=== PATIENT | male | born 1940 | race Caucasian/White ===

== ENCOUNTER 2016-05-10 12:05 | Outpatient (CLI) ==
[2015-03-02 17:13] VITALS: BMI 27.3
--- NOTE | 2016-05-11 08:05 | CT ---
EXAM: CT scan of the sinuses without contrast HISTORY: Dizzy and giddiness for 3-4 days TECHNIQUE: Imaging of the sinuses was performed. Axial images and coronal and sagittal reconstruct ions were provided for interpretation. FINDINGS: There is mild mucosal thickening seen along the floor the maxillary sinuses bilaterally. There is minimal mucosal thickening seen along the floor of the frontal sinus. No abnormal air-flu id levels are seen. The remainder of the paranasal sinuses and mastoid air cells are clear. No obv ious obstructing lesions are seen along the ostiomeatal complexes. The nasal turbinates are normal. There is slight deviation of the nasal septum to the left. IMPRESSION: Mild chronic sinusitis seen along the floor of the maxillary sinuses bilaterally and al evin the floor of the frontal sinus.
--- NOTE | 2016-05-11 08:05 | CT ---
EXAM: CT of the head without contrast History: Dizziness and giddiness Comparison: Head CT 03/02/2015 Technique: Multiplanar CT images through the head were obtained without the administration of IV co ntrast Findings: No air-fluid levels seen within the sinuses. No acute calvarial abnormalities. Intracranially the ventricular and cisternal spaces are normal in size, shape and configuration for a patient of this age. 8 mm vague round hyperdensity seen within the left cerebellum was not seen on the prior study. Periventricular and subcortical white matter hypodensities again noted. Impression: Round hyperdensity within the left cerebellum could represent mass or small focus of hem orrhage. Consider further evaluation with brain MRI.
== END 2016-05-10 12:06 | disposition home or self-care (01) ==
LOC: RAD 12:05
PROVIDERS: ATTEND General Practice
DX: R42 Dizziness and giddiness (principal)

== ENCOUNTER 2016-05-13 06:31 | Outpatient (CLI) ==
[2015-03-02 17:13] VITALS: BMI 27.3
--- NOTE | 2016-05-13 08:46 | MRI ---
EXAM: MRA brain without IV contrast. DATE: 13 May 2016. HISTORY: Brain disorder. Dizziness. Lung cancer. TECHNIQUE: 3-D [id number] sequence centered on the [place] was performed without IV contr ast, using 1.2 [place] magnet. 3-D MIP reconstruction images of the intracranial arteries were produc ed in addition to the axial source images. Degree of stenoses are characterized by NASCET criteria. COMPARISON: MRI brain 13 May 2016. FINDINGS: Neither vertebral artery is dominant. Vertebrobasilar system is tortuous. Basilar arter y is normal in diameter, without focal stenosis, dissection or aneurysm. Each superior cerebellar a rtery is intact. Right and left PCOM is intact. 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 Symmetric bilateral blood flow is evident within the anterior, middle, and posterior cerebral artery distributions peripherally. No intracranial aneurysm or AVM is detected. Both petrous ICAs are normal. Each cavernous ICA is norm al. IMPRESSIONS: 1. Intact ACOM and bilateral PCOM. 2. No intracranial aneurysm or AVM. 3. Codominant vertebral arteries. 4. Normal bilateral petrous and cavernous ICAs.
--- NOTE | 2016-05-13 09:03 | MRI ---
EXAM: MRI brain without IV contrast. DATE: 13 May 2016. HISTORY: Brain disorder. Dizziness. Lung cancer. TECHNIQUE: Sagittal T1W, axial T2W, axial FLAIR, axial T1W, axial DWI, and coronal T2W GRE sequence s of the brain were obtained using 1.2 [place] magnet. No IV contrast. COMPARISON: MRA brain [address] head 10 May 2016 and 02 March 2015. FINDINGS: The lateral ventricles, or tips, third ventricle, Sylvian fissures and many cerebral sulc i are mildly prominent due to involutional change. No midline shift, mass effect or abnormal extra- axial fluid collection is apparent. No acute infarct is identified. Minimal T2W/FLAIR hyperintensi ty is observed in the white matter abutting each lateral ventricle. A T2W/T1W isointense, FLAIR iso intense with minimal adjacent IR bright signal, and T W GRE isointense focus (6.1 x 7 x 4 mm ( is ob served within the left cerebellum corresponding to high density focus on CT scan. The marcsu - white matter differentiation is normal. The 7th/8th cranial nerve complexes, cerebellopontine angles, bra instem, and visible cervical spinal cord are normal. There is no cerebellar tonsillar ectopia. The pituitary gland is normal in size and signal. Corpus callosum is normal in size and configuration. Flow voids are present in the major intracranial arteries and in the dural venous sinuses. Tumor basilar system is tortuous. No aneurysm, AVM or dural venous sinus thrombosis is apparent. Change in the lens of each eye suggest prior cataract surgery. No other orbit abnormality is identified. Small number right and moderate number left mastoid air cells have reticular pattern T2W bright, T1W intermediate signal. Remaining mastoid air cells are unremarkable. There is mild mucosal thickeni ng in both maxillary sinuses. Minor mucosal thickening is seen within the frontal sinuses and scatt ered ethmoid air cells. No neck mass or lymphadenopathy is detected. No calvarial neoplasm or acut e fracture is evident. IMPRESSIONS: 1. Left cerebellum subcentimeter lesion corresponding to the high density on CT scan. The signal i ntensities are not typical for hemorrhage or calcification. DDX: Primary or metastatic neoplasm sh ould be considered, especially in a patient who indicates lung cancer. Contrast-enhanced MRI may be helpful in further evaluation. 2. No acute infarct or hydrocephalus. 3. Minor supratentorial small vessel disease. 4. Mild cerebral and minor cerebellar atrophy. 5. Bilateral mastoid air cells mild mucosal disease. 6. Frontal, ethmoid, maxillary sinus mucosal disease. Note: Report called to Dr. Olsen's nurse (Di) at 0854 hrs, 13 May 2016.
== END 2016-05-13 06:32 | disposition home or self-care (01) ==
LOC: RAD 06:31
PROVIDERS: ATTEND General Practice
DX: G93.9 Disorder of brain, unspecified (principal); R58 Hemorrhage, not elsewhere classified

== ENCOUNTER 2016-05-25 08:54 | Outpatient (CLI) ==
[2015-03-02 17:13] VITALS: BMI 27.3
--- NOTE | 2016-05-25 10:43 | MRI ---
EXAM: MRI brain with IV contrast. DATE: 05/25/2016. HISTORY: Left cerebellum lesion. TECHNIQUE: Sagittal , axial, and coronal T1W postcontrast sequences of the brain and axial T1W prec ontrast sequence were obtained using 1.2 [place] magnet. CONTRAST: Omniscan - 19 ml IV. COMPARISON: MRI brain 13 May 2016. FINDINGS: The lateral ventricles, temporal tips, third ventricle, Sylvian fissures, and many cerebr al sulci are somewhat prominent due to involutional change. No midline shift, mass effect or abnorm al extra-axial fluid collection is apparent. No acute infarct or hemorrhage is identified. No abno rmal contrast enhancement is identified in the meninges or dura. A T1W precontrast isointense, slig htly heterogeneously enhancing, 9 x 9.5 x 7 mm focus in the left cerebellum corresponds with lesion identified on May 2016 MRI. No other enhancing neoplasm is identified. The marcus - white m atter differentiation is normal. No migration or diverticulation abnormality is identified. The am ygdala, hippocampus, and parahippocampal gyri are symmetric in size and signal bilaterally. The 7th /8th cranial nerve complexes, cerebellopontine angles, brainstem, and visible cervical spinal cord a re normal. There is no cerebellar tonsillar ectopia. The pituitary gland is normal in size and has normal signal. Corpus callosum is normal in size and configuration. Flow voids are present in the major intracranial arteries and in the dural venous sinuses. No aneurysm, AVM or dural venous sinu s thrombosis is apparent. Change in the lens of each eye suggests prior cataract surgery. No other orbit abnormality is identified. A single right anterior superior mastoid air cell has T1W interme diate signal without definitive enhancement. Left mastoid air cells are unremarkable. There is min imal mucosal thickening within scattered ethmoid air cells, both frontal sinuses, and both maxillary sinuses. No neck mass or lymphadenopathy is detected. No calvarial neoplasm or acute fracture is evident. IMPRESSIONS: 1. Left cerebellum enhancing lesion. DDX: Primary neoplasm or metastatic disease are the most lik michele considerations. This is not a typical appearance for cavernous angioma, AVM or aneurysm. Hamar kelley or other benign neoplasm are not excluded. 2. No acute infarct, hemorrhage, or hydrocephalus. 3. Mild cerebral and minor cerebellar atrophy. 4. Minimal right mastoid air cell disease. 5. Persistent, minor sinus mucosal disease.
== END 2016-05-25 08:55 | disposition home or self-care (01) ==
LOC: RAD 08:54
PROVIDERS: ATTEND Internal Medicine Hematology & Oncology
DX: G93.9 Disorder of brain, unspecified (principal)

== ENCOUNTER 2016-06-08 07:14 | Outpatient (CLI) ==
[2015-03-02 17:13] VITALS: BMI 27.3
--- NOTE | 2016-06-08 09:04 | CT ---
EXAM: CT chest with contrast. CT abdomen with contrast. CT pelvis with contrast. HISTORY: Lung cancer. COMPARISON: 03/31/2016, 02/17/2012. TECHNIQUE: Multiple axial images of the chest, abdomen pelvis were obtained following intravenous a dministration of 75 mL of Omnipaque 350, low osmolar. Images were reformatted in the sagittal and c oronal plane. FINDINGS: Multiple mediastinal lymph nodes are present with the largest measuring 1.1 cm in the AP window on axial images 24 and 25, stable since the most recent study, new since 2011. Right hilar l ymph nodes measure up to 0.9 cm short axis on axial image 29 which is stable since 2011. Left hilar lymph nodes measure up to 1.1 cm short axis on axial image 30, stable since the most recent study, new since 2011. Heart size is normal. No pericardial effusion identified. Atherosclerotic calcifications are prese nt. Ascending thoracic aorta measures up to 4.7 cm transverse diameter. There is no evidence for ao rtic dissection. Spiculated mass within the left lower lobe measures approximately 4.9 x 4.4 x 3.4 cm on sagittal fabian ge 39 and coronal images 71 and 72 which is mildly increased in size since the most recent study. S atellite nodule measuring 0.4 cm noted on axial image 37 inferior to the spiculated mass is stable s glenn the most recent study, although new since 2011. A 0.7 cm left upper lobe nodule on axial image 15 is stable since the most recent study, although new since 2011. No pleural effusion or pneumotho rax detected. A 1.7 x 1.5 low density lateral left hepatic lobe lesion noted on axial image 55 is stable since 201 2, as is a 0.8 x 0.6 cm inferior right hepatic lobe lesion noted on axial image 67. The gallbladder , pancreas, spleen, and adrenal glands are unremarkable. There is symmetric renal enhancement witho ut hydronephrosis. There is no evidence for bowel obstruction or acute inflammation. Diverticula are present in the co juanjo. Appendix not seen. Urinary bladder is unremarkable. Prostate gland is enlarged measuring at least 6 x 5 x 5.5 cm. No free fluid or free air seen in the abdomen or pelvis. Atherosclerotic cathy cifications present. No lymphadenopathy seen within the abdomen or pelvis. Degenerative changes present throughout the spine and hips. No osteolytic or osteoblastic lesion id entified. 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 IMPRESSION: 1. Mild increase in size of spiculated left lower lobe mass with small satellite nodule, consistent with lung cancer. Additional left upper lobe nodule and mediastinal and left hilar lymphadenopathy, likely due to the same process. 2. No evidence for metastatic disease in the abdomen or pelvis.
== END 2016-06-08 07:15 | disposition home or self-care (01) ==
LOC: RAD 07:14
PROVIDERS: ATTEND Internal Medicine Hematology & Oncology
DX: C34.90 Malignant neoplasm of unspecified part of unspecified bronchus or lung (principal)

== ENCOUNTER 2016-07-13 04:07 | Emergency (ER) ==
[2016-07-13 04:28] VITALS: BP 119/80; TEMP 98.2; BMI 25.9
[2016-07-13] MEDS ORDERED: SODIUM CHLORIDE 1,000 ML IV STA ×2 (04:43→06:40)
[2016-07-13 05:00] LABS: BASOPHILS % (AUTO) 0.4 % (0.0-3.0); EOSINOPHILS # (AUTO) 0.2 K/ul (0.0-0.7); HEMATOCRIT 45.5 % (42.0-52.0); IMMATURE GRANULOCYTE % (AUTO) 0.5 % (0.0-5.0); LYMPHOCYTES # (AUTO) 0.9 K/uL (0.60-3.4); LYMPHOCYTES % (AUTO) 11.7 (10.0-50.0); MEAN CORPUSCULAR HEMOGLOBIN 30.4 pg (27.0-31.0); MEAN CORPUSCULAR HGB CONC 35.2 (31.8-35.4); MEAN CORPUSCULAR VOLUME 86.5 fl (80.0-94.0); MONOCYTES # (AUTO) 1.4 K/uL (0.4-2.0); MONOCYTES % (AUTO) 17.6 (0-10); NEUTROPHILS # (AUTO) 5.4 K/ul (2.0-6.9); NEUTROPHILS % (AUTO) 67.8; PLATELET COUNT 205 10^3/uL (140-440); RED BLOOD COUNT 5.26 10^6/ul (4.70-6.10); WHITE BLOOD COUNT 7.97 K/ul (4.2-10.2)
[2016-07-13 05:32] LABS: ALBUMIN 3.4 g/dL (3.4-5.0); ALBUMIN/GLOBULIN RATIO 0.97; ANION GAP 16.4; BILIRUBIN,TOTAL 1.63 mg/dL (0.00-1.20); BUN/CREATININE RATIO 18.04; CALCIUM 8.9 mg/dL (8.2-10.2); CREATININE 1.33 mg/dL (0.60-1.10); ERYTHROCYTE SEDIMENTATION RATE 26 mm/hr (0-15); ESR INTERNAL QC INTERNAL QC VALID; POTASSIUM 3.4 mmol/L (3.5-5.1); TOTAL PROTEIN 6.9 g/dL (5.8-8.1)
--- NOTE | 2016-07-13 05:42 | CT ---
EXAM: CT abdomen pelvis without intravenous contrast 07/13/2016. Sagittal and coronal reformatted images obtained HISTORY: Diarrhea. Lung cancer COMPARISON: 03/08/2017 FINDINGS: Partially visualized linear and mass-like opacity within the left lower lobe. The previously described low density lesion within the left lobe of the liver on image 26 is stable. This may represent cyst or hemangioma. The liver and gallbladder show no acute abnormality. The adrenal glands and kidneys show no acute process. There is no urinary obstruction. The spleen and pancreas show no acute abnormality. No bowel obstruction. There are multiple air fluid levels within small bowel and colon. Correlate for enteritis/diarrhea. IMPRESSION: 1. Partially visualized linear and mass-like density at the left lower lobe. Malignancy has been p reviously described at this site. 2. Stable benign appearing low density lesion within the left lobe of the liver which may represent cyst or meningioma. 3. No urinary or bowel obstruction. Multiple air fluid levels of small bowel and colon. Correlate for enteritis/diarrhea. 4. No acute superimposed inflammatory process identified within the abdomen or pelvis within the li mitation of a noncontrast enhanced examination.
[2016-07-13 06:12] LABS: BILIRUBIN,URINE 1+ (NEGATIVE); KETONES,URINE Negative (NEGATIVE); LEUKOCYTE ESTERASE ,URINE Negative (NEGATIVE); NITRITE,URINE Negative (NEGATIVE); PH,URINE 5.5 (5-9); PROTEIN,URINE 1+ (NEGATIVE); URINE, BLOOD Negative (NEGATIVE)
[2016-07-13 06:17] LABS: ADD URINE MICROSCOPIC YES; BACTERIA,URINE TRACE (NOT PRESENT)
--- NOTE | 2016-07-13 06:36 | ED.PDOC ---
[id number] 4d im having 20 stools per day while using imodium... Time Seen by Physician: 04:10 Mode of Arrival: Walk-In Information Source: Patient, Family Exam Limitations: No limitations [facility] T[facility] Documentation Reviewed and Agree: Yes GI Complaint Exam - Vomiting/Diarrhea Complaint/Exam Onset/Duration: one month Symptoms Are: Still present Episodes of Vomiting over last 24 Hours: 0 Episodes of Diarrhea Over Last 24 Hours: 20 Initial Severity: Mild Current Severity: Severe Character of Diarrhea: Reports: Watery Aggravating: Reports: Food Alleviating: Reports: None Associated Signs and Symptoms: Reports: Abdominal pain, Cramping. Denies: Light -headedness, Melena, Hematemesis, Fever Non-GI Risk Factors: Reports: None Abdominal Findings: Present: None Kussmaul Respirations Present: No Differential Diagnoses: Dehydration, Bacterial Gastroenteritis Review of Systems - Review Of Systems Constitutional: Reports: No symptoms Eyes: Reports: No symptoms Ears, Nose, Mouth, Throat: Reports: No symptoms Respiratory: Reports: No symptoms Cardiac: Reports: No symptoms GI: Reports: Diarrhea, Nausea, Poor appetite, Poor fluid intake : Reports: No symptoms Musculoskeletal: Reports: No symptoms Skin: Reports: No symptoms Neurological: Reports: No symptoms Endocrine: Reports: No symptoms Hematologic/Lymphatic: Reports: No symptoms All Other Systems: Reviewed and Negative Past Medical History - Past Medical History Previously Healthy: Yes Endocrine: Reports: Dyslipidemia Cardiovascular: Reports: None Respiratory: Reports: None Hematological: Reports: None Gastrointestinal: Reports: None Genitourinary: Reports: None Neuro/Psych: Reports: None Musculoskeletal: Reports: None Cancer: Reports: None - Surgical History General Surgical History: Reports: None - Family History Family History: Reports: None - Social History Smoking Status: Never smoker Hx Substance Use: No Alcohol Screening: None Lives: With family - Immunizations Tetanus Shot up to Date: No Physical Exam - Physical Exam Appearance: Well-appearing, No pain distress, Well-nourished Pain Distress: Moderate Eyes: AMOL, EOMI, Conjunctiva clear ENT: Ears normal, Nose normal, Oropharynx normal Neck: Supple Respiratory: Airway patent, Breath sounds clear, Breath sounds equal, Respirations nonlabored Cardiovascular: RRR, Pulses normal, No rub, No murmur GI/: Soft, Nontender, No masses, Bowel sounds normal, No Organomegaly Musculoskeletal: Normal strength, ROM intact, No edema, No calf tenderness Skin: Warm, Dry, Normal color Neurological: Sensation intact, Motor intact, Reflexes intact, Cranial nerves intact, Alert, Oriented Psychiatric: Affect appropriate, Mood appropriate Interpretation - Radiology Interpretation Radiology Interpretation By: Radiologist Radiology Results: Negative Exam Interpreted: CT Scan - EKG Interpretation Time of EKG #1: 05:00 Rate: Normal Rhythm: Sinus [place]: Right ST Segment: Normal Re-Evaluation - Re-Evaluation Time of Re-Evaluation: 06:51 Status: Improved Vital Signs Stable: Yes Pain Level: 0 Appearance: NAD Lungs: Clear Skin: Warm and Dry Neuro: Alert and Oriented X3 CV: RRR Physician Notification - Case Discussed Physician Notified: dr doss(covering for dr gillespie)--advised holding afatinib Time of Notification: 06:52 Critical Care Note - Critical Care Note Total Time (mins): 0 Course - Course Hematology/Chemistry: 07/13/16 04:55 07/13/16 04:55 Orders, Labs, Meds: Lab Review 07/13/16 07/13/16 04:55 06:05 WBC 7.97 RBC 5.26 Hgb 16.0 Hct 45.5 MCV 86.5 MCH 30.4 MCHC 35.2 RDW Coeff of Lela 12.7 Plt Count 205 Immature Gran % (Auto) 0.5 Neut % (Auto) 67.8 Lymph % (Auto) 11.7 [place] % (Auto) 17.6 H Eos % (Auto) 2.0 Baso % (Auto) 0.4 Immature Gran # (Auto) 0.0 Neut # 5.4 Lymph # 0.9 [place] # 1.4 Eos # 0.2 Baso # 0.0 ESR 26 H Sodium 135 L Potassium 3.4 L Chloride 104 Carbon Dioxide 18 L Anion Gap 16.4 BUN 24 H Creatinine 1.33 H Estimated GFR (MDRD) 52.00 BUN/Creatinine Ratio 18.04 Glucose 120 H Calcium 8.9 Total Bilirubin 1.63 H AST 12 L ALT 17 Alkaline Phosphatase 64 Total Protein 6.9 Albumin 3.4 Globulin 3.5 Albumin/Globulin Ratio 0.97 Amylase 37 Lipase 14 Urine Color Yellow Urine Clarity Clear Urine pH 5.5 Ur Specific [place] 1.025 Urine Protein 1+ Urine Glucose (UA) Negative Urine Ketones Negative Urine Blood Negative Urine Nitrite Negative Urine Bilirubin 1+ Urine Urobilinogen 0.2 Ur Leukocyte Esterase Negative Urine Microscopic WBC 0-2 Ur Squamous Epith Cells 0-2 Urine Bacteria Trace Hyaline Casts 2-5 Urine Mucus 1+ Orders Category Date Time Status EKG-(ED ONLY) Stat CARDIO 07/13/16 04:43 Completed ED IV/MEDIPORT/POWERPORT .ONCE EMERGENCY 07/13/16 04:43 Active AMYLASE Stat LAB 07/13/16 04:55 Completed CBC W/ AUTO DIFF Stat LAB 07/13/16 04:55 Completed COMPREHENSIVE METABOLIC PANEL Stat LAB 07/13/16 04:55 Completed ESR Stat LAB 07/13/16 04:55 Completed LIPASE Stat LAB 07/13/16 04:55 Completed STOOL CULTURE Stat LAB 07/13/16 06:05 Results URINALYSIS C & S IF INDICATED Stat LAB 07/13/16 06:05 Completed 0.9 % Sodium Chloride [Saline Flush] MEDS 07/13/16 04:43 Discontinued 1 syr IVF PRN PRN Sodium Chloride 0.9% [Sodium Chloride] 1,000 ml MEDS 07/13/16 04:43 Discontinued IV BOLUS Sodium Chloride 0.9% [Sodium Chloride] 1,000 ml MEDS 07/13/16 06:[address] ABDOMEN/PELVIS WO CONTRAST Stat RADS 07/13/16 04:43 Completed Medications Discontinued Medications Generic Name Dose Route Start Last Admin Trade Name Freq PRN Reason Stop Dose Admin Sodium Chloride 1,000 mls @ 1,000 mls/hr 07/13/16 04:43 07/13/16 04:58 Sodium Chloride IV 07/13/16 05:42 1,000 mls/hr BOLUS STA Administration Sodium Chloride 1,000 mls @ 1,000 mls/hr 07/13/16 06:40 07/13/16 06:40 Sodium Chloride IV 07/13/16 07:39 1,000 mls/hr BOLUS STA Administration Sodium Chloride 1 syr 07/13/16 04:43 07/13/16 04:58 Saline Flush IVF 1 syr PRN PRN Administration To flush IV Vital Signs: Temp Pulse Resp BP Pulse Ox 07/13/16 04:08 98.2 F 107 H 24 119/80 95 Departure - Departure Time of Disposition: 06:52 Disposition: HOME SELF-CARE Discharge Problem: Diarrhea Instructions: Acute Diarrhea (ED) Condition: Good Pt referred to PMD for follow-up: Yes Additional Instructions: hold afatinib for now until you speak to dr gillespie later today--return prn Allergies/Adverse Reactions: Allergies No Known Allergies Allergy (Verified 07/13/16 04:28) Home Medications: Ambulatory Orders Afatinib Dimaleate [Gilotrif] 40 mg PO DAILY 07/13/16 Loperamide HCl [Imodium] 2 mg PO LOOSE STOOL PRN PRN 07/13/16 Disposition Discussed With: Patient, Family
== END 2016-07-13 07:56 | disposition home or self-care (01) ==
LOC: ED 04:07
DX: R19.7 Diarrhea, unspecified (principal); R10.9 Unspecified abdominal pain
CPT/HCPCS: 36415; 80053; 81001; 82150; 83690; 85025; 85651; 87015; 87045; 87899; 93005; 93010; 96360; 96361; 99283

== ENCOUNTER 2016-09-24 10:16 | Outpatient (CLI) | payer OTHER ==
[2016-09-24 12:56] LABS: BASOPHILS % (AUTO) 0.5 % (0.0-3.0); EOSINOPHILS # (AUTO) 0.2 K/ul (0.0-0.7); EOSINOPHILS % (AUTO) 2.8 % (0.0-7.0); HEMATOCRIT 42.2 % (42.0-52.0); IMMATURE GRANULOCYTE % (AUTO) 0.2 % (0.0-5.0); LYMPHOCYTES # (AUTO) 1.1 K/uL (0.60-3.4); MEAN CORPUSCULAR HGB CONC 33.2 (31.8-35.4); MEAN CORPUSCULAR VOLUME 93.4 fl (80.0-94.0); MONOCYTES # (AUTO) 0.7 K/uL (0.4-2.0); MONOCYTES % (AUTO) 12.2 (0-10); NEUTROPHILS # (AUTO) 3.7 K/ul (2.0-6.9); NEUTROPHILS % (AUTO) 65.3; PLATELET COUNT 214 10^3/uL (140-440); RED BLOOD COUNT 4.52 10^6/ul (4.70-6.10); WHITE BLOOD COUNT 5.73 K/ul (4.2-10.2)
[2016-09-24 13:07] LABS: BILIRUBIN,URINE Negative (NEGATIVE); KETONES,URINE Negative (NEGATIVE); LEUKOCYTE ESTERASE ,URINE Negative (NEGATIVE); NITRITE,URINE Negative (NEGATIVE); PH,URINE 5.5 (5-9); PROTEIN,URINE Negative (NEGATIVE); URINE, BLOOD Negative (NEGATIVE)
[2016-09-24 13:19] LABS: ALBUMIN 4.1 g/dL (3.4-5.0); ALBUMIN/GLOBULIN RATIO 1.37; ANION GAP 14.2; BILIRUBIN,TOTAL 1.67 mg/dL (0.00-1.20); BUN/CREATININE RATIO 16.27; CALCIUM 9.4 mg/dL (8.2-10.2); CHOL/HDL RATIO 3.6 (4.5-6.4); CREATININE 0.86 mg/dL (0.60-1.10); POTASSIUM 4.2 mmol/L (3.5-5.1); TOTAL PROTEIN 7.1 g/dL (5.8-8.1)
[2016-09-24 13:25] LABS: ADD URINE MICROSCOPIC NO
== END 2016-09-24 10:17 | disposition home or self-care (01) ==
LOC: LAB 10:16
PROVIDERS: ATTEND General Practice
DX: R73.09 Other abnormal glucose (principal); D64.9 Anemia, unspecified; E78.5 Hyperlipidemia, unspecified; Z79.899 Other long term (current) drug therapy
CPT/HCPCS: 36415; 80053; 80061; 81001; 83036; 85025

== ENCOUNTER 2017-01-28 13:00 | Outpatient (CLI) ==
[2017-01-28 13:20] LABS: BASOPHILS % (AUTO) 0.6 % (0.0-3.0); EOSINOPHILS # (AUTO) 0.1 K/ul (0.0-0.7); EOSINOPHILS % (AUTO) 2.2 % (0.0-7.0); HEMATOCRIT 42.1 % (42.0-52.0); HEMOGLOBIN 14.1 g/dl (14.0-18.0); IMMATURE GRANULOCYTE % (AUTO) 0.4 % (0.0-5.0); LYMPHOCYTES % (AUTO) 19.1 (10.0-50.0); MEAN CORPUSCULAR HEMOGLOBIN 31.2 pg (27.0-31.0); MEAN CORPUSCULAR HGB CONC 33.5 (31.8-35.4); MEAN CORPUSCULAR VOLUME 93.1 fl (80.0-94.0); MONOCYTES # (AUTO) 0.5 K/uL (0.4-2.0); MONOCYTES % (AUTO) 9.3 (0-10); NEUTROPHILS # (AUTO) 3.7 K/ul (2.0-6.9); NEUTROPHILS % (AUTO) 68.4; PLATELET COUNT 221 10^3/uL (140-440); RED BLOOD COUNT 4.52 10^6/ul (4.70-6.10); WHITE BLOOD COUNT 5.39 K/ul (4.2-10.2)
[2017-01-28 13:31] LABS: BILIRUBIN,URINE Negative (NEGATIVE); KETONES,URINE Negative (NEGATIVE); LEUKOCYTE ESTERASE ,URINE Negative (NEGATIVE); NITRITE,URINE Negative (NEGATIVE); PROTEIN,URINE Negative (NEGATIVE); URINE, BLOOD Negative (NEGATIVE)
[2017-01-28 13:32] LABS: ADD URINE MICROSCOPIC NO
[2017-01-28 13:38] LABS: ALBUMIN 3.8 g/dL (3.4-5.0); ALBUMIN/GLOBULIN RATIO 1.15; ANION GAP 13.8; BILIRUBIN,TOTAL 1.41 mg/dL (0.00-1.20); BUN/CREATININE RATIO 20.93; CALCIUM 9.3 mg/dL (8.2-10.2); CHOL/HDL RATIO 3.5 (4.5-6.4); CREATININE 0.86 mg/dL (0.60-1.10); POTASSIUM 3.8 mmol/L (3.5-5.1); TOTAL PROTEIN 7.1 g/dL (5.8-8.1)
== END 2017-01-28 13:01 | disposition home or self-care (01) ==
LOC: LAB 13:00
PROVIDERS: ATTEND General Practice
DX: C80.1 Malignant (primary) neoplasm, unspecified (principal); E78.5 Hyperlipidemia, unspecified; I71.4 Abdominal aortic aneurysm, without rupture; R73.03 Prediabetes; Z79.899 Other long term (current) drug therapy
CPT/HCPCS: 36415; 80053; 80061; 81001; 83036; 85025

== ENCOUNTER 2017-07-11 13:38 | Outpatient (CLI) | END 2017-07-11 13:39 | disposition home or self-care (01) | LOC: FCC-LAB 13:38 | PROVIDERS: ATTEND General Practice | DX: E78.5 Hyperlipidemia, unspecified (principal); C34.90 Malignant neoplasm of unspecified part of unspecified bronchus or lung; C80.1 Malignant (primary) neoplasm, unspecified; Z79.899 Other long term (current) drug therapy; Z12.5 Encounter for screening for malignant neoplasm of prostate | CPT/HCPCS: 36415; 80053; 80061; 81001; 85025 ==

== ENCOUNTER 2017-08-29 15:17 | Outpatient (CLI) ==
--- NOTE | 2017-08-29 15:45 | DI ---
EXAM: Two views of the chest. History: Cough. Comparison: Chest radiograph 03/02/2015 Findings: Heart size is upper limits of normal. Question nodular infiltrate on the lateral view. No appreciable pleural fluid and no pneumothorax. No acute osseous abnormalities. Impression: Question nodular lung infiltrate on the lateral view. Recommend further evaluation with chest CT.
== END 2017-08-29 15:18 | disposition home or self-care (01) ==
LOC: RAD 15:17
PROVIDERS: ATTEND General Practice
DX: R06.02 Shortness of breath (principal); R05 Cough
CPT/HCPCS: 36415; 80053; 83880

== ENCOUNTER 2017-09-09 19:33 | Emergency (ER) ==
[2017-09-09 19:43] VITALS: BP 117/75; TEMP 99.3; BMI 25.0
[2017-09-09] MEDS ORDERED: XOPENEX 1.25 MG NEB STA (19:50)
[2017-09-09] MEDS ORDERED: DUONEB NEB STA (19:50)
[2017-09-09] MEDS ORDERED: SOLU-MEDROL 125 MG IVP STA (19:50)
--- NOTE | 2017-09-09 20:23 | ED.PDOC ---
General ED Provider: Dr. JOLLY LILLY-ER Chief Complaint: Shortness of Air Stated Complaint: hes had increasing sob over the past 4 days--hx of stage 4 lung ca Time Seen by Physician: 19:40 Mode of Arrival: Walk-In Information Source: Patient Exam Limitations: No limitations [facility] Nursing and Triage Documentation Reviewed and Agree: Yes Reviewed sepsis parameters & appropriate labs ordered?: Yes System Inflammatory Response Syndrome: Not Applicable Sepsis Protocol: For patient's 13 years and over: Temp is 96.8 and below OR 101 and greater Pulse >90 BPM Resp >20/minute Acutely Altered Mental Status Are patient's symptoms suggestive of a new infection, such as: -Pneumonia -Skin, Soft Tissue -Endocarditis -UTI -Bone, Joint Infection -Implantable Device -Acute Abdominal Infection -Wound Infection -Meningitis -Blood Stream Catheter Infection -Unknown Respiratory Complaint Exam - Shortness of Air Complaint/Exam Onset/Duration: 3-4 days Symptoms Are: Still present Timing: Intermittent Initial Severity: Mild Current Severity: Moderate Character: Reports: Dyspnea on exertion Aggravating: Reports: None Alleviating: Reports: None Associated Signs and Symptoms: Reports: Cough, Labored breathing. Denies: Wheezing, Chest pain with cough, Chest pain, Fever, Diaphoresis, Nasal congestion, Dizziness, Calf pain, Calf swelling, Edema, Rapid breathing History of Healthcare-Acquired Pneumonia: No Tuberculosis Risk Factors: Reports: None Home Oxygen Use: No Recent Stress Test: No Recent Echo/LV Function: No Respiratory Distress: None Stridor Present: No Tracheal Deviation: No Subcutaneous Emphysema: No Accessory Muscle Use: No Retractions: Not Present Diminished Breath Sounds: Yes Prolonged Expiratory Phase: No Unable to Speak Full Sentences: No Fatigue: No Leg Swelling: No Dolores's Sign Present: No Grunting Respirations: No Kussmaul Respirations: No Quality Indicator For Non-Traumatic Chest Pain/Syncope: EKG Performed Review of Systems - Review Of Systems Constitutional: Reports: No symptoms Eyes: Reports: No symptoms Ears, Nose, Mouth, Throat: Reports: No symptoms Respiratory: Reports: Short of air Cardiac: Reports: No symptoms GI: Reports: No symptoms : Reports: No symptoms Musculoskeletal: Reports: No symptoms Skin: Reports: No symptoms Neurological: Reports: No symptoms Endocrine: Reports: No symptoms Hematologic/Lymphatic: Reports: No symptoms All Other Systems: Reviewed and Negative Past Medical History - Past Medical History Previously Healthy: Yes Endocrine: Reports: Dyslipidemia Cardiovascular: Reports: None Respiratory: Reports: None Hematological: Reports: None Gastrointestinal: Reports: None Genitourinary: Reports: None Neuro/Psych: Reports: None Musculoskeletal: Reports: None Cancer: Reports: Lung - Surgical History General Surgical History: Reports: None - Family History Family History: Reports: None - Social History Smoking Status: Never smoker Hx Substance Use: No Alcohol Screening: None Physical Exam - Physical Exam Appearance: Well-appearing Eyes: AMOL, EOMI, Conjunctiva clear ENT: Ears normal, Nose normal, Oropharynx normal Neck: Supple Respiratory: Breath sounds diminished Cardiovascular: RRR, Pulses normal, No rub, No murmur GI/: Soft, Nontender, No masses, Bowel sounds normal, No Organomegaly Musculoskeletal: Normal strength, ROM intact, No edema, No calf tenderness Skin: Warm Neurological: Sensation intact Psychiatric: Affect appropriate Interpretation - Radiology Interpretation Radiology Interpretation By: Radiologist Radiology Results: Positive Exam Interpreted: CXR Physician Notification - Case Discussed Physician Notified: dr coreas--notified Time of Notification: 21:42 Physician Notified: ry salas--[facility] Time of Notification: 21:43 Critical Care Note - Critical Care Note Total Time (mins): 45 Course - Course Hematology/Chemistry: 09/09/17 20:04 09/09/17 20:04 Orders, Labs, Meds: Lab Review 09/09/17 09/09/17 09/09/17 19:49 20:04 20:04 WBC 3.84 L RBC 4.23 L Hgb 13.0 L Hct 38.3 L MCV 90.5 MCH 30.7 MCHC 33.9 RDW Coeff of Lela 13.6 Plt Count 140 Immature Gran % (Auto) 0.5 Neut % (Auto) 70.5 Lymph % (Auto) 12.8 Dooly % (Auto) 13.3 H Eos % (Auto) 2.9 Baso % (Auto) 0.0 Immature Gran # (Auto) 0.0 Neut # (Auto) 2.7 Lymph # (Auto) 0.5 L Dooly # (Auto) 0.5 Eos # (Auto) 0.1 Baso # (Auto) 0.0 D-Dimer (Manual) Puncture Site Lb O2 Saturation 95.0 ABG pH 7.463 H ABG pCO2 31.4 L ABG pO2 71.0 L ABG HCO3 22.5 ABG Total CO2 23 ABG Base Excess -1 Keanu Test + FiO2 % 21.0 Sodium 140 Potassium 3.8 Chloride 106 Carbon Dioxide 20 L Anion Gap 17.8 BUN 14 Creatinine 0.89 Estimated GFR (MDRD) 83.00 BUN/Creatinine Ratio 15.73 Glucose 106 Calcium 8.7 Total Bilirubin 1.0 AST 20 ALT 20 Alkaline Phosphatase 59 B-Natriuretic Peptide Total Protein 6.6 Albumin 3.4 Globulin 3.2 Albumin/Globulin Ratio 1.06 09/09/17 09/09/17 20:04 20:04 WBC RBC Hgb Hct MCV MCH MCHC RDW Coeff of Lela Plt Count Immature Gran % (Auto) Neut % (Auto) Lymph % (Auto) Dooly % (Auto) Eos % (Auto) Baso % (Auto) Immature Gran # (Auto) Neut # (Auto) Lymph # (Auto) Dooly # (Auto) Eos # (Auto) Baso # (Auto) D-Dimer (Manual) 8137.98 Puncture Site O2 Saturation ABG pH ABG pCO2 ABG pO2 ABG HCO3 ABG Total CO2 ABG Base Excess Keanu Test FiO2 % Sodium Potassium Chloride Carbon Dioxide Anion Gap BUN Creatinine Estimated GFR (MDRD) BUN/Creatinine Ratio Glucose Calcium Total Bilirubin AST ALT Alkaline Phosphatase B-Natriuretic Peptide 64 Total Protein Albumin Globulin Albumin/Globulin Ratio Orders Category Date Time Status ABG DRAW REQUEST Stat CARDIO 09/09/17 19:49 Completed EKG-(ED ONLY) Stat CARDIO 09/09/17 19:49 Completed NEBULIZER TREATMENT Stat CARDIO 09/09/17 19:50 Completed NPO REMINDER: IMAGING ONCE CARE 09/09/17 19:51 Completed TRANSFER TO OUTSIDE FACILITY .TO [facility] 09/09/17 21:45 Active [facility] ([place], [place]) WRITE TRANSFER/SBAR NOTE ONCE CARE 09/09/17 21:45 Active DISCHARGE ASSESSMENT ONCE DISCHARGE 09/09/17 21:45 Active WRITE DISCHARGE NOTE ONCE DISCHARGE 09/09/17 21:45 Active IV [ED IV/MEDIPORT/POWERPORT] .ONCE EMERGENCY 09/09/17 19:49 Active ABG Stat LAB 09/09/17 19:49 Completed BLOOD CULTURE (ED ONLY) Stat LAB 09/09/17 20:04 Received BNP [B-TYPE NATRIURETIC PEPTIDE] Stat LAB 09/09/17 20:04 Completed CBC W/ AUTO DIFF Stat LAB 09/09/17 20:04 Completed COMPREHENSIVE METABOLIC PANEL Stat LAB 09/09/17 20:04 Completed D-DIMER Stat LAB 09/09/17 20:04 Completed 0.9 % Sodium Chloride [Saline Flush] MEDS 09/09/17 19:49 Ordered 1 syr IVF PRN PRN Ipratropium/Albuterol Neb [Duoneb] MEDS 09/09/17 19:50 Discontinued 1 vial NEB ONCE STA Levalbuterol HCl [Xopenex 1.25 mg] MEDS 09/09/17 19:50 Discontinued 1 vial NEB ONCE STA Methylprednisolone Sod Succ/Pf [Solu-Medrol 125 mg] MEDS 09/09/17 19:50 Discontinued 125 mg IVP ONCE STA CXR [CHEST, 1V AP ONLY] Stat RADS 09/09/17 20:11 Completed Medications Generic Name Dose Route Start Last Admin Trade Name Freq PRN Reason Stop Dose Admin Sodium Chloride 1 syr 09/09/17 19:49 09/09/17 20:14 Saline Flush IVF 1 syr PRN PRN Administration To flush IV Discontinued Medications Generic Name Dose Route Start Last Admin Trade Name Freq PRN Reason Stop Dose Admin Albuterol/Ipratropium 1 vial 09/09/17 19:50 09/09/17 19:55 Duoneb NEB 09/09/17 19:51 1 vial ONCE STA Administration Levalbuterol HCl 1 vial 09/09/17 19:50 09/09/17 20:14 Xopenex 1.25 Mg NEB 09/09/17 19:51 1 vial ONCE STA Administration Methylprednisolone Sodium Succinate 125 mg 09/09/17 19:50 09/09/17 20:14 Solu-Medrol 125 Mg IVP 09/09/17 19:51 125 mg ONCE STA Administration the patient declined ct scan here--made aware of need due to positive d dimer but declines and wants to go [place]--dr wren aware--air evac declined tranport by helicoptor or fixed wing due to weather to [place]--ambulance on the way to tranport the patient Vital Signs: Temp Pulse Resp BP Pulse Ox 09/09/17 19:34 99.3 F 82 20 117/75 94 L Departure - Departure Time of Disposition: 21:43 Disposition: TSF SHORT-TRM HOSP Discharge Problem: D-dimer, elevated Dyspnea Qualifiers: Dyspnea type: unspecified Qualified Code(s): R06.00 - Dyspnea, unspecified Condition: Stable Pt referred to PMD for follow-up: Yes IPMP verified?: No Allergies/Adverse Reactions: Allergies No Known Allergies Allergy (Verified 09/09/17 19:42) Home Medications: Ambulatory Orders Afatinib Dimaleate [Gilotrif] 40 mg PO DAILY 07/13/16 Loperamide HCl [Imodium] 2 mg PO LOOSE STOOL PRN PRN 07/13/16 Transfer Form Completed: Yes Disposition Discussed With: Patient, Family
--- NOTE | 2017-09-09 21:17 | DI ---
EXAM: AP single view of the chest. HISTORY: Dyspnea. FINDINGS: The bones are unremarkable. The cardiac silhouette and pulmonary vasculature are within no rmal limits. The costophrenic angles are clear. There is bibasilar atelectasis and/or pneumonia. Impression: Bibasilar atelectasis and/or pneumonia.
== END 2017-09-09 22:40 | disposition short-term general hospital (02) ==
LOC: ED 19:33
DX: R79.1 Abnormal coagulation profile (principal); R06.02 Shortness of breath; R05 Cough; E78.5 Hyperlipidemia, unspecified; C34.90 Malignant neoplasm of unspecified part of unspecified bronchus or lung; C79.31 Secondary malignant neoplasm of brain
CPT/HCPCS: 36415; 80053; 82803; 83880; 85025; 85379; 87040; 93005; 93010; 94640; 96361; 96374; 96375; 99285

== ENCOUNTER 2017-09-09 22:50 | Outpatient (CLI) ==
[2017-09-09 19:43] VITALS: BMI 25.0
== END 2017-09-09 22:51 | disposition short-term general hospital (02) ==
LOC: AMBL 22:50
PROVIDERS: ATTEND Family Medicine
DX: R06.02 Shortness of breath (principal); C34.90 Malignant neoplasm of unspecified part of unspecified bronchus or lung; C79.31 Secondary malignant neoplasm of brain

== ENCOUNTER 2017-10-30 16:44 | Emergency (ER) ==
[2017-10-30 16:48] VITALS: BP 103/70; TEMP 97.3; BMI 24.6
[2017-10-30] MEDS ORDERED: DECADRON 4 MG/ML SDV IM STA (17:19)
--- NOTE | 2017-10-30 17:21 | ED.PDOC ---
General ED Provider: Dr. MARY JO VERDIN Chief Complaint: Foot Pain/Injury Stated Complaint: Left foot is swollen, no pain. says he had Bee sting that is been swollen for 2 days Time Seen by Physician: 17:33 Mode of Arrival: Walk-In Information Source: Patient [facility] and Triage Documentation Reviewed and Agree: Yes Does patient meet sepsis criteria?: No If yes, has appropriate treatment been initiated?: No System Inflammatory Response Syndrome: Not Applicable Sepsis Protocol: For patient's 13 years and over: Temp is 96.8 and below OR 101 and greater Pulse >90 BPM Resp >20/minute Acutely Altered Mental Status Are patient's symptoms suggestive of a new infection, such as: -Pneumonia -Skin, Soft Tissue -Endocarditis -UTI -Bone, Joint Infection -Implantable Device -Acute Abdominal Infection -Wound Infection -Meningitis -Blood Stream Catheter Infection -Unknown Skin Complaint Exam - Skin/Soft Tissue Complaint/Exam Symptoms Are: Still present Timing: Constant Initial Severity: Mild Current Severity: Mild Character: Reports: Swelling. Denies: Redness, Raised, Painful Aggravating: Reports: Touch Alleviating: Reports: None Associated Signs and Symptoms: Reports: Itching. Denies: Fever, Chills, Drainage, Bruising, Tenderness, Red streaks, Joint swelling Related History: Reports: Insect bite/sting Related Surgical History: Reports: None Skin Findings: Present: Other (has small open bogdan, with red marging healthy) Differential Diagnoses: Other (bee sting) Review of Systems - Review Of Systems Constitutional: Reports: No symptoms Eyes: Reports: No symptoms Ears, Nose, Mouth, Throat: Reports: No symptoms Respiratory: Reports: No symptoms Cardiac: Reports: No symptoms GI: Reports: No symptoms : Reports: No symptoms Musculoskeletal: Reports: No symptoms Skin: Reports: No symptoms (foot swelling), Other Neurological: Reports: No symptoms Endocrine: Reports: No symptoms Hematologic/Lymphatic: Reports: No symptoms All Other Systems: Reviewed and Negative Past Medical History - Past Medical History Previously Healthy: Yes Endocrine: Reports: Dyslipidemia Cardiovascular: Reports: None Respiratory: Reports: PE Hematological: Reports: None Gastrointestinal: Reports: None Genitourinary: Reports: None Neuro/Psych: Reports: None Musculoskeletal: Reports: None Cancer: Reports: Lung - Surgical History General Surgical History: Reports: Appendectomy, Orthopedic (tendon release.), Other (bilateral Inguinal hernia repair.) - Family History Family History: Reports: None - Social History Smoking Status: Never smoker Hx Substance Use: No Alcohol Screening: None Physical Exam - Physical Exam Appearance: Well-appearing, No pain distress, Well-nourished Eyes: AMOL, EOMI, Conjunctiva clear ENT: Ears normal, Nose normal, Oropharynx normal Respiratory: Airway patent, Breath sounds clear, Breath sounds equal, Respirations nonlabored Cardiovascular: RRR, Pulses normal, No rub, No murmur GI/: Soft, Nontender, No masses, Bowel sounds normal, No Organomegaly Musculoskeletal: Normal strength, ROM intact, No edema, No calf tenderness Skin: Dry (left foot has swelling 1 +ve edema no leg swelling NOP CALF tenderness, small open area healthy), Normal color Neurological: Sensation intact, Motor intact, Reflexes intact, Cranial nerves intact, Alert, Oriented Psychiatric: Affect appropriate, Mood appropriate Critical Care Note - Critical Care Note Total Time (mins): 30 Course - Course Orders, Labs, Meds: Orders Category Date Time Status Dexamethasone 4 mg/ml Inj [Decadron 4 mg/ml Sdv] MEDS 10/30/17 17:19 Discontinued 4 mg IM ONCE STA Medications Discontinued Medications Generic Name Dose Route Start Last Admin Trade Name Freq PRN Reason Stop Dose Admin Dexamethasone Sodium Phosphate 4 mg 10/30/17 17:19 Decadron 4 Mg/Ml Sdv IM 10/30/17 17:20 ONCE STA Vital Signs: Temp Pulse Resp BP Pulse Ox 10/30/17 16:44 97.3 F L 72 16 103/70 96 Departure - Departure Time of Disposition: 17:38 Disposition: HOME SELF-CARE Discharge Problem: Bee sting Qualifiers: Encounter type: initial encounter Injury intent: accidental or unintentional Qualified Code(s): T63.441A - Toxic effect of venom of bees, accidental ( unintentional), initial encounter Instructions: Insect Bite or Sting (ED) Condition: Stable Pt referred to PMD for follow-up: Yes IPMP verified?: No Additional Instructions: Keep the foot elevated, keep f/u with Dr Olsen Prescriptions: Prednisone 10 mg PO BIDWM #14 tablet Allergies/Adverse Reactions: Allergies No Known Allergies Allergy (Verified 10/30/17 16:48) Home Medications: Ambulatory Orders Afatinib Dimaleate [Gilotrif] 40 mg PO DAILY 07/13/16 Enoxaparin Sodium 100 mg SQ BID 10/30/17 Prednisone 10 mg PO BIDWM #14 tablet 10/30/17 Disposition Discussed With: Patient, Family
== END 2017-10-30 18:27 | disposition home or self-care (01) ==
LOC: ED 16:44
DX: T63.441A Toxic effect of venom of bees, accidental (unintentional), initial encounter (principal); M79.89 Other specified soft tissue disorders
CPT/HCPCS: 96372; 99283

== ENCOUNTER 2017-11-04 11:52 | Outpatient (CLI) | END 2017-11-04 11:53 | disposition home or self-care (01) | LOC: FCC-LAB 11:52 | PROVIDERS: ATTEND General Practice | DX: E78.5 Hyperlipidemia, unspecified (principal); D64.9 Anemia, unspecified; Z79.899 Other long term (current) drug therapy; Z12.5 Encounter for screening for malignant neoplasm of prostate | CPT/HCPCS: 36415; 80053; 80061; 81001; 85025; 87086 ==

== ENCOUNTER 2018-03-03 08:42 | Emergency (ER) ==
[2018-03-03 08:42] VITALS: BMI 24.6
[2018-03-03 08:48] VITALS: BP 111/78; TEMP 97.6
[2018-03-03] MEDS ORDERED: DUONEB NEB STA (08:56)
[2018-03-03] MEDS ORDERED: TUSSIONEX PO STA (08:56)
[2018-03-03] MEDS ORDERED: DECADRON 4 MG/ML SDV IM STA (08:56)
--- NOTE | 2018-03-03 10:13 | CT ---
EXAM: CT chest without contrast. HISTORY: Cough. Lung cancer. COMPARISON: 06/08/2016. TECHNIQUE: Multiple axial images of the chest were obtained without intravenous contrast. Images we re reformatted in the sagittal and coronal planes. FINDINGS: Evaluation for lymphadenopathy is limited by lack of intravenous contrast. Subcarinal lym ph node measures 1.1 cm short axis on axial image 28 which is probably unchanged. Other AP window ly mph nodes are probably stable. Heart size is normal. No pericardial effusion detected. Ascending t horacic aorta measures approximately 4.9 x 4.8 cm. Left lower lobe mass-like opacity measures 4.1 x 2.4 cm on axial image 30 which has decreased in size since prior study. Adjacent consolidation with air bronchograms is new. There are new bilateral pu lmonary nodules measuring up to 1 cm in the right lower lobe on axial image 29 and 0.7 cm in the left upper lobe on images nine and 27. Additional nodules are present. No pleural effusion or pneumotho rax identified. The Low density lateral left hepatic lobe lesion measures up to 1.7 cm on axial image 53 which is stable. No osteolytic or osteoblastic lesion identified. IMPRESSION: 1. New bilateral pulmonary nodules measuring up to 1 cm in the right lower lobe, highly suspicious f or metastatic disease. 2. Decreased left lower lobe mass-like consolidation since the prior study, which may represent resi dual tumor. Adjacent consolidation may represent postoperative scarring. 3. Ascending thoracic aortic aneurysm measuring 4.9 x 4.8 cm.
--- NOTE | 2018-03-03 10:20 | ED.PDOC ---
General ED Provider: Dr. KIRILL BUI Chief Complaint: Cough Stated Complaint: cough, congestion history of cancer of the lung STAGE 4 Time Seen by Physician: 09:00 (seen with duarte at all times , has stage 4 lung cancer , now persistant cough) Mode of Arrival: Walk-In Information Source: Patient Exam Limitations: No limitations Primary Care Provider: BRUCE MORRELLJessenia Referred to ED by: Other (no SHORTNESS OF BREATH NO RESP DISTRESS OF ANY KIND , NEGATIVE HEMOPSTAIS) Nursing and Triage Documentation Reviewed and Agree: Yes Does patient meet sepsis criteria?: No System Inflammatory Response Syndrome: Not Applicable Sepsis Protocol: For patient's 13 years and over: Temp is 96.8 and below OR 101 and greater Pulse >90 BPM Resp >20/minute Acutely Altered Mental Status Are patient's symptoms suggestive of a new infection, such as: -Pneumonia -Skin, Soft Tissue -Endocarditis -UTI -Bone, Joint Infection -Implantable Device -Acute Abdominal Infection -Wound Infection -Meningitis -Blood Stream Catheter Infection -Unknown Respiratory Complaint Exam - Respiratory Complaint/Exam Onset/Duration: 3 WEEKS OF COUGH/CONGESTION NO RESP DISTRESS Timing: Intermittent Initial Severity: Mild Current Severity: None Location: Chest Character: Reports: Non-productive cough Aggravating: Reports: URI Alleviating: Reports: Spontaneous resolution Associated Signs and Symptoms: Reports: URI, Nasal congestion. Denies: Rapid breathing, Dyspnea, Fever, Chills, Chest pain, Pleuritic chest pain, Wheezing, Hemoptysis, Dizziness, Calf pain, Calf swelling, Edema, Hoarseness, Sinus discomfort, Vomiting, Sore throat, Weight loss, Decreased oral intake, Increased thirst, Increased appetite, Increased urination Related History: Reports: Similar episode History of Healthcare-Acquired Pneumonia: No Related Surgical History: Reports: None Pulmonary Embolism Risk Factors: Malignancy Cardiac Risk Factors: Reports: Elevated lipids Pseudomonas Risk Factors: Reports: Chronic Lung Disease Tuberculosis Risk Factors: Reports: Immune deficiency (LUNG CANCER ). Denies: Malnutrition, Diabetes, Communal living, Chronic Resp. Faliure, Drug addiction Status Asthmaticus Risk Factors: Reports: None Home Oxygen Use: No Recent Stress Test: No Recent Echo/LV Function: No Current Antibiotic Use: No Current Asthma Medication Use: No Respiratory Distress: None Inadequate Respiratory Effort: No Dysphagia Present: No Stridor Present: No JVD Present: No Accessory Muscle Use: No Retractions: Not Present Diminished Breath Sounds: No Sinus Tenderness: None Grunting Respirations: No Kussmaul Respirations: No Differential Diagnoses: CHF, Pulmonary Edema, COPD Exacerbation, Pneumonia, Bronchitis Review of Systems - Review Of Systems Constitutional: Reports: No symptoms Eyes: Reports: No symptoms Ears, Nose, Mouth, Throat: Reports: No symptoms Respiratory: Reports: Cough Cardiac: Reports: No symptoms GI: Reports: No symptoms : Reports: No symptoms Musculoskeletal: Reports: No symptoms Skin: Reports: No symptoms Neurological: Reports: No symptoms Endocrine: Reports: No symptoms Hematologic/Lymphatic: Reports: No symptoms All Other Systems: Reviewed and Negative Past Medical History - Past Medical History Previously Healthy: Yes Endocrine: Reports: Dyslipidemia Cardiovascular: Reports: None Respiratory: Reports: PE Hematological: Reports: None Gastrointestinal: Reports: None Genitourinary: Reports: None Neuro/Psych: Reports: None Musculoskeletal: Reports: None Cancer: Reports: Lung - Surgical History General Surgical History: Reports: Appendectomy, Orthopedic (tendon release.), Other (bilateral Inguinal hernia repair.) - Family History Family History: Reports: None - Social History Smoking Status: Never smoker Hx Substance Use: No Alcohol Screening: None Physical Exam - Physical Exam Appearance: Well-appearing, No pain distress, Well-nourished Eyes: AMOL, EOMI, Conjunctiva clear ENT: Ears normal, Nose normal, Oropharynx normal Respiratory: Rhonchi Cardiovascular: RRR, Pulses normal, No rub, No murmur GI/: Soft, Nontender, No masses, Bowel sounds normal, No Organomegaly Musculoskeletal: Normal strength, ROM intact, No edema, No calf tenderness Skin: Warm, Dry, Normal color Neurological: Sensation intact, Motor intact, Reflexes intact, Cranial nerves intact, Alert, Oriented Psychiatric: Affect appropriate, Mood appropriate Interpretation - Radiology Interpretation Radiology Interpretation By: Radiologist Radiology Results: Positive (LUNG MASS AND ASENDING AORTIC ANEURYSM, PT NOTIFIED) Critical Care Note - Critical Care Note Total Time (mins): 0 Course - Course Hematology/Chemistry: 03/03/18 09:05 03/03/18 09:05 Orders, Labs, Meds: Lab Review 03/03/18 03/03/18 09:05 09:05 WBC 10.81 H RBC 4.32 L Hgb 13.5 L Hct 40.0 L MCV 92.6 MCH 31.3 H MCHC 33.8 RDW Coeff of Lela 12.4 Plt Count 200 Immature Gran % (Auto) 0.5 Neut % (Auto) 83.2 Lymph % (Auto) 7.5 L Dixon % (Auto) 8.0 Eos % (Auto) 0.6 Baso % (Auto) 0.2 Immature Gran # (Auto) 0.1 Neut # (Auto) 9.0 H Lymph # (Auto) 0.8 Dixon # (Auto) 0.9 Eos # (Auto) 0.1 Baso # (Auto) 0.0 Sodium 136.0 L Potassium 3.96 Chloride 99.8 Carbon Dioxide 28.1 Anion Gap 12.06 BUN 12.3 Creatinine 0.98 Estimated GFR (MDRD) 74.00 BUN/Creatinine Ratio 12.55 Glucose 108.2 H Calcium 9.46 Total Bilirubin 1.62 H AST 23.8 ALT 23.5 Alkaline Phosphatase 62.1 Total Protein 7.58 Albumin 4.54 Globulin 3.04 Albumin/Globulin Ratio 1.49 Orders Category Date Time Status NEBULIZER TREATMENT Stat CARDIO 03/03/18 08:56 Completed BLOOD CULTURE (ED ONLY) Stat LAB 03/03/18 09:05 Received CBC W/ AUTO DIFF Stat LAB 03/03/18 09:05 Completed COMPREHENSIVE METABOLIC PANEL Stat LAB 03/03/18 09:05 Completed Dexamethasone 4 mg/ml Inj [Decadron 4 mg/ml Sdv] MEDS 03/03/18 08:56 Discontinued 8 mg IM ONCE STA Hydrocodone/Chlorphen Polis [Tussionex] MEDS 03/03/18 08:56 Discontinued 5 ml PO ONCE STA Ipratropium/Albuterol Neb [Duoneb] MEDS 03/03/18 08:56 Discontinued 1 vial NEB ONCE STA CT CHEST W/O CONTRAST Stat RADS 03/03/18 09:36 Completed Medications Discontinued Medications Generic Name Dose Route Start Last Admin Trade Name Freq PRN Reason Stop Dose Admin Albuterol/Ipratropium 1 vial 03/03/18 08:56 03/03/18 09:09 Duoneb NEB 03/03/18 08:57 1 vial ONCE STA Administration Chlorphenir/Hydrocodone Polistirex 5 ml 03/03/18 08:56 03/03/18 09:09 Tussionex PO 03/03/18 08:57 5 ml ONCE STA Administration Dexamethasone Sodium Phosphate 8 mg 03/03/18 08:56 03/03/18 09:09 Decadron 4 Mg/Ml Sdv IM 03/03/18 08:57 8 mg ONCE STA Administration Vital Signs: Temp Pulse Resp BP Pulse Ox 03/03/18 08:42 97.6 F 73 20 111/78 93 L Departure - Departure Time of Disposition: 10:23 (REPORTS GIVEN TO THE PT ) Disposition: HOME SELF-CARE Discharge Problem: Cough, Bronchitis, Ascending aortic aneurysm Instructions: Thoracic Aortic Aneurysm (ED) Condition: Good Pt referred to PMD for follow-up: Yes IPMP verified?: No Additional Instructions: Please call your Family Physician as soon as possible to schedule a follow-up appointment. Allergies/Adverse Reactions: Allergies No Known Allergies Allergy (Verified 03/03/18 08:49) Home Medications: Ambulatory Orders Afatinib Dimaleate [Gilotrif] 30 mg PO DAILY 07/13/16 Benzonatate [Tessalon Perles] 100 mg PO TID PRN 03/03/18 Edoxaban Tosylate [Savaysa] 60 mg PO DAILY 03/03/18 Disposition Discussed With: Patient, Family
== END 2018-03-03 10:32 | disposition home or self-care (01) ==
LOC: ED 08:42
DX: J40 Bronchitis, not specified as acute or chronic (principal); I71.2 Thoracic aortic aneurysm, without rupture; C34.90 Malignant neoplasm of unspecified part of unspecified bronchus or lung; E78.5 Hyperlipidemia, unspecified
CPT/HCPCS: 36415; 80053; 80061; 81001; 85025; 87040; 94640; 96372; 99282

== ENCOUNTER 2018-03-03 11:54 | Outpatient (CLI) | payer OTHER ==
[2018-03-03 08:42] VITALS: BMI 24.6
== END 2018-03-03 11:55 | disposition home or self-care (01) ==
LOC: RHC-LAB 11:54
PROVIDERS: ATTEND General Practice
DX: I71.2 Thoracic aortic aneurysm, without rupture (principal); I28.1 Aneurysm of pulmonary artery; E78.5 Hyperlipidemia, unspecified; C34.90 Malignant neoplasm of unspecified part of unspecified bronchus or lung; G93.9 Disorder of brain, unspecified; Z79.899 Other long term (current) drug therapy
CPT/HCPCS: 36415; 80053; 80061; 81001; 85025

== ENCOUNTER 2018-06-15 13:57 | Outpatient (CLI) | payer OTHER | END 2018-06-15 13:58 | disposition home or self-care (01) | LOC: RHC-LAB 13:57 | PROVIDERS: ATTEND General Practice | DX: R05 Cough (principal); R50.9 Fever, unspecified; R53.83 Other fatigue | CPT/HCPCS: 87502; 87651 ==